=== PATIENT | female | born 1970 | race Two or more races ===

== ENCOUNTER 2018-05-15 07:35 | Emergency (ER) | payer OTHER ==
[~2018-05-15] VITALS: Ht 175.3 cm; Wt 72.6 kg
[2018-05-15 07:41] VITALS: Ht 175.3 cm; Wt 72.6 kg
[2018-05-15 08:11] VITALS: BP 122/94
== END 2018-05-15 08:11 | disposition home or self-care (01) ==
LOC: ED 07:35
DX: H66.92 Otitis media, unspecified, left ear (principal)